=== PATIENT | male | born 1950 | race Caucasian/White ===

== ENCOUNTER 2020-08-23 10:17 | Outpatient (CLI) | payer MEDICARE, MEDICAID ==
[~2020-08-23 10:17] MED LIST: AMLO2.5T2 PO; ATOR40TA PO; OXYC1TAB17 PO; POTA20TA19 PO
== END 2020-08-23 23:59 | disposition home or self-care (01) ==
LOC: 64 CT 10:17
PROVIDERS: ATTEND Surgery
DX: K40.90 Unilateral inguinal hernia, without obstruction or gangrene, not specified as recurrent (principal); K82.8 Other specified diseases of gallbladder; M47.816 Spondylosis without myelopathy or radiculopathy, lumbar region; K76.9 Liver disease, unspecified
CPT/HCPCS: 74176

== ENCOUNTER 2024-01-08 08:17 | Outpatient (CLI) | payer MEDICARE, MEDICAID ==
[~2024-01-08 08:17] MED LIST changes: +POTA-207 PO; -POTA20TA19 PO
[2024-01-08] MEDS ORDERED: iohexol 300mg/ml 100ml inj. ONE (08:41)
[2024-01-08 09:34] LABS: ALBUMIN 3.9 G/DL (3.4-5.0); ANION GAP 8 (8-16); BLOOD UREA NITROGEN 17 MG/DL (7-18); BUN/CREATININE RATIO 14.3 (10.0-20.0); CHLORIDE 105 MMOL/L (99-107); CREATININE 1.19 MG/DL (0.60-1.10); GLUCOSE 122 MG/DL (70-104); POTASSIUM 4.2 MMOL/L (3.5-5.1); SODIUM 139 MMOL/L (135-145); TOTAL CARBON DIOXIDE 26.3 MMOL/L (24-32); eGFR 60 ML/MIN
== END 2024-01-08 23:59 | disposition home or self-care (01) ==
LOC: RAD 08:17
PROVIDERS: ATTEND Surgery
DX: K40.20 Bilateral inguinal hernia, without obstruction or gangrene, not specified as recurrent (principal); K43.2 Incisional hernia without obstruction or gangrene; K80.20 Calculus of gallbladder without cholecystitis without obstruction
CPT/HCPCS: 36415; 74177; 80048; J3490; Q9967